=== PATIENT | female | born 1965 ===

== ENCOUNTER 2017-08-02 10:44 | Emergency (ER) | payer BC ==
[2017-08-02 11:09] VITALS: BMI 37.5
[2017-08-02 11:30] VITALS: RESP 18; TEMP 98.9
[2017-08-02] MEDS ORDERED: Sodium Chloride 0.9% 1,000 ML IV STA (11:57)
[2017-08-02] MEDS ORDERED: Iohexol 240 (50 ml) ONE (12:02)
--- NOTE | 2017-08-02 12:05 | ED PDOC ---
Arrival/HPI - General Historian: Patient - History of Present Illness Time/Duration: Prior to Arrival, > week Symptom Onset: Gradual Symptom Course: Intermittent Quality: Aching, Pressure, Burning Activities at Onset: Rest - General Chief Complaint: Flu-like Symptoms - History of Present Illness Narrative History of Present Illness (Text): 08/02/17 12:02 52F w/ PMHx of NIDDM, Pyelonephritis, multiple hernia repair w/ mesh, and HTN presents to [facility] w/ generalized crampy abdominal pain and hot warm sharp low back pain. Lower back pain has been intermittent for about 1 week. Laying down makes it feel better. Denies loss of bowel or bladder function. Abdominal pain started yesterday evening. States feeling bloated. This AM had an episode of non -bloody, non-bilious vomiting, continued nausea. States bowel movement this AM was normal. BM have been every 2-3 days. Passed flatus yesterday evening. Admits to current subjective fevers and chills PMH: stated above PSH: abdominoplasty, Ventral hernia repair w/ mesh x2, cholecystectomy ALL: NKDA (Jeff Coffman) Past Medical History - Provider Review Nursing Documentation Reviewed: Yes - Travel History Have you recently traveled outside [place] w/in the past 3 mons?: No - Infectious Disease Hx of Infectious Diseases: None - Cardiac Hx Hypertension: Yes - Pulmonary Hx Asthma: Yes - Endocrine/Metabolic Hx Diabetes Mellitus Type 2: Yes Hx Hypothyroidism: Yes - Hematological/Oncological Hx Blood Transfusions: No Hx Blood Transfusion Reaction: No - Musculoskeletal/Rheumatological Hx Falls: No - Psychiatric Hx Depression: No Hx Emotional Abuse: No Hx Physical Abuse: No Hx Substance Use: No Other/Comment: pcos - Surgical History Hx Cholecystectomy: Yes (12/2010) Other/Comment: 2 umbilical hernia sx, intestinal obsruction sx left abd, fibroids removed 2006 - Anesthesia Hx Anesthesia: Yes Hx Anesthesia Reactions: No Hx Malignant Hyperthermia: No - Suicidal Assessment Feels Threatened In Home Enviroment: No Family/Social History - Physician Review Nursing Documentation Reviewed: Yes Family/Social History: Other (non-contributory) Smoking Status: Never Smoked Hx Alcohol Use: No Hx Substance Use: No Hx Substance Use Treatment: No Allergies/Home Meds Allergies/Adverse Reactions: Allergies No Known Allergies Allergy (Verified 03/29/16 14:55) Home Medications: Home Meds Medication Instructions Recorded Confirmed Levothyroxine Sodium [Levoxyl] 175 mg PO DAILY 12/26/11 08/02/17 Metformin HCl [Fortamet] 1,000 mg PO BID 12/26/11 08/02/17 Atenolol [Tenormin] 12.5 mg PO DAILY 03/29/16 08/02/17 Losartan/Hydrochlorothiazide 1 tab PO DAILY 03/29/16 08/02/17 [Losartan Potassium-Hydrochlorothiazide 12.5 M] Review of Systems - Physician Review All systems were reviewed & negative as marked: Yes - Review of Systems Constitutional: Fevers. absent: Fatigue, Weight Change Eyes: absent: Vision Changes, Photophobia ENT: absent: Hearing Changes, Tinnitus, TMJ Pain, Sore Throat, Rhinorrhea, Epistaxis Respiratory: absent: SOB, Cough Cardiovascular: absent: Chest Pain, Palpitations, Edema Gastrointestinal: Nausea, Vomiting. absent: Abdominal Pain, Stool Changes, Constipation, Diarrhea Genitourinary Female: absent: Dysuria, Hematuria, Urine Output Changes Musculoskeletal: absent: Arthralgias, Back Pain, Neck Pain, Joint Swelling Skin: absent: Rash, Pruritis, Skin Lesions, Laceration Neurological: absent: Headache, Dizziness, Focal Weakness Endocrine: absent: Diaphoresis, Polyuria Physical Exam Vital Signs Reviewed: Yes Temperature: Afebrile Blood Pressure: Hypertensive Pulse: Tachycardic Respiratory Rate: Normal Appearance: Positive for: Well-Appearing, Non-Toxic, Comfortable Pain Distress: None Mental Status: Positive for: Alert and Oriented X 3 - Systems Exam Head: Present: Atraumatic, Normocephalic Pupils: Present: PERRL Extroacular Muscles: Present: EOMI Mouth: Present: Moist Mucous Membranes Neck: Present: Normal Range of Motion Respiratory/Chest: Present: Clear to Auscultation, Good Air Exchange. No: Respiratory Distress, Accessory Muscle Use Cardiovascular: Present: Regular Rate and Rhythm, Normal S1, S2. No: Murmurs Abdomen: Present: Distention, Normal Bowel Sounds, Other (soft; midline incision , no palpable hernia when supine). No: Tenderness, Peritoneal Signs Back: Present: Paraspinal Tenderness. No: CVA Tenderness, Midline Tenderness, Pain with Leg Raise Upper Extremity: Present: Normal Inspection, NORMAL PULSES. No: Cyanosis, Edema Lower Extremity: Present: Normal Inspection. No: CALF TENDERNESS Neurological: Present: GCS=15, Speech Normal Skin: Present: Warm, Normal Color. No: Rashes Psychiatric: Present: Alert, Oriented x 3 Vital Signs Temp Pulse Resp BP Pulse Ox 08/02/17 10:45 98.9 F 118 H 18 146/92 H 100 Medical Decision Making - Lab Interpretations I have reviewed the lab results: Yes Interpretation: No clinic. lab abnormalty ED Course and Treatment: Seen and examined with resident. 52 y/o F p/w abdominal pain and R flank pain. On exam, no CVA tenderness, abd soft. (Imm,Saman T) - Zofran, Pepcid, IVF - CT scan w/ IV contrast - CBC/CMP/Lactate Labs reviewed- mildly elevated WBC 12.4 w/ left shift Rapid flu negative Lactate- WNL UA- trace leukocytes CT- LOWER THORAX: Scattered uneven attenuation probable ventilation profusion/atelectatic changes - similar. LIVER: Unremarkable. No gross lesion or ductal dilatation. GALLBLADDER AND BILE DUCTS: Unremarkable. PANCREAS: Unremarkable. No gross lesion or ductal dilatation. SPLEEN: Unremarkable. ADRENALS: Unremarkable. No mass. KIDNEYS AND URETERS: Unremarkable. No hydronephrosis. No solid mass. VASCULATURE: Pelvic phleboliths. No aortic aneurysm. BOWEL: Small-bowel loops adherent to the anterior abdominal wall/ ventral hernia mesh can be seen with adhesions. -no associated obstruction. No gross mural thickening. Diverticulosis without gross diverticulitis APPENDIX: Normal appendix. PERITONEUM: . No free fluid. No free air. Anterior abdominal ventral hernia mesh -renoted the ventral protruding of it is similar in appearance LYMPH NODES: Unremarkable. No enlarged lymph nodes. BLADDER: Unremarkable. REPRODUCTIVE: Lobulated uterus consistent with likely uterine [id number] BONES: No acute fracture. OTHER FINDINGS: surgical mesh covering a large ventral hernia unchanged IMPRESSION: Large ventral hernia with large covering mesh similar-appearing . No interval obstruction. (Jeff Coffman) - Lab Interpretations Narrative Lab Interpretation (Text): 08/02/17 13:27 WBC slightly elevated at 12.3 w/ left shift UA- trace leukocytes; No signs of acute UTI Chem and Lactate- WNL (Jeff Coffman) Lab Results: 08/02/17 12:50 08/02/17 12:50 Lab Results 08/02/17 12:50: Influenza Typ A,B (EIA) Negative for flu a/b 08/02/17 12:50: Lactic Acid 1.6 08/02/17 12:50: Sodium 139, Potassium 3.8, Chloride 97 L, Carbon Dioxide 29, Anion Gap 16, BUN 18, Creatinine 0.6 L, Est GFR ( Amer) > 60, Est GFR ( Non-Af Amer) > 60, Random Glucose 135 H, Calcium 10.0, Total Bilirubin 0.3, AST 38 H, ALT 48, Alkaline Phosphatase 71, Total Protein 7.7, Albumin 4.3, Globulin 3.4, Albumin/Globulin Ratio 1.2, Lipase 113 08/02/17 12:50: Urine Color Yellow, Urine Appearance Clear, Urine pH 8.0, Ur Specific [place] 1.020, Urine Protein Negative, Urine Glucose (UA) Negative, Urine Ketones Negative, Urine Blood Negative, Urine Nitrate Negative, Urine Bilirubin Negative, Urine Urobilinogen 0.2, Ur Leukocyte Esterase Trace H, Urine RBC Negative, Urine WBC 2 - 5, Ur Epithelial Cells 6 - 8, Urine Bacteria Few 08/02/17 12:50: WBC 12.3 H, RBC 4.50, Hgb 13.6, Hct 40.3, MCV 89.6, MCH 30.2, MCHC 33.7, RDW 13.4, Plt Count 353, MPV 9.9, Gran % 87.9 H, Lymph % (Auto) 6.9 L , [place] % (Auto) 3.9, Eos % (Auto) 1.1 L, Baso % (Auto) 0.2, Gran # 10.82 H, Lymph # (Auto) 0.9 L, [place] # (Auto) 0.5, Eos # (Auto) 0.1, Baso # (Auto) 0.03 - RAD Interpretation Radiology Orders: 08/02/17 13:10 ABD & PELVIS IV CONTRAST ONLY [CT] Stat - Medication Orders Current Medication Orders: Discontinued Medications Famotidine (Pepcid) 20 mg IVP STAT STA Stop: 08/02/17 11:58 Last Admin: 08/02/17 12:45 Dose: 20 mg IVP Administration Document 08/02/17 12:45 EQ (Rec: 08/02/17 12:51 EQ [id number]) Charges for Administration # of IVP Administrations 1 Sodium Chloride (Sodium Chloride 0.9%) 1,000 mls @ 999 mls/hr IV .Q1H1M STA Stop: 08/02/17 12:57 Last Admin: 08/02/17 12:51 Dose: 999 mls/hr eMAR Start Stop Document 08/02/17 12:51 EQ (Rec: 08/02/17 12:52 EQ [id number]) Intravenous Solution Start Date 08/02/17 Start Time 12:52 Ondansetron HCl (Zofran Inj) 4 mg IVP STAT STA Stop: 08/02/17 11:58 Last Admin: 08/02/17 12:52 Dose: 4 mg IVP Administration Document 08/02/17 12:52 EQ (Rec: 08/02/17 12:52 EQ [id number]) Charges for Administration # of IVP Administrations 1 - PA / DIRECTOR TELEVISION NEWS / Resident Statement / has reviewed & agrees with the documentation as recorded. / has examined the patient and agrees with the treatment plan. Disposition/Present on Arrival - Present on Arrival Any Indicators Present on Arrival: No History of DVT/PE: No History of Uncontrolled Diabetes: No Urinary Catheter: No History of Decub. Ulcer: No History Surgical Site Infection Following: None - Disposition Have Diagnosis and Disposition been Completed?: Yes Disposition Time: 15:40 Patient Plan: Discharge - Disposition Diagnosis: Abdominal pain, Constipation Disposition: HOME/ ROUTINE Condition: GOOD Discharge Instructions (ExitCare): Constipation, Adult (DC) Additional Instructions: Thank you for letting us take care of you today. You were treated for Lower back and abdominal pain. The emergency medical care you received today was directed at your acute symptoms. If you were prescribed any medication, please fill it and take as directed. It may take several days for your symptoms to resolve. Return to the Emergency Department if your symptoms worsen, do not improve, or if you have any other problems. Please contact your doctor or call one of the physicians/clinics you have been referred to that are listed on the Patient Visit Information form that is included in your discharge packet. Bring any paperwork you were given at discharge with you along with any medications you are taking to your follow up visit. Our treatment cannot replace ongoing medical care by a primary care provider (PCP) outside of the emergency department. CT scan showed:. KIDNEYS AND URETERS: Unremarkable. No hydronephrosis. No solid mass. BONES: No acute fracture. OTHER FINDINGS: surgical mesh covering a large ventral hernia unchanged IMPRESSION: Large ventral hernia with large covering mesh similar-appearing . No interval obstruction. All Lab values were within normal limits Tested Flu Negative today. Thank you for allowing the [facility] team to be part of your care today. Prescriptions: Ondansetron [Zofran] 4 mg PO Q8H PRN #20 tab PRN Reason: Nausea/Vomiting Polyethylene Glycol 3350 [Miralax] 17 ml PO TID 14 Days ml Referrals: [facility], [Non-Staff] - Follow up with primary Forms: [employer] ([place]i)
[2017-08-02 13:02] LABS: BASO # 0.03 K/mm3 (0.0-2.0); BASO % 0.2 % (0.0-3.0); EOS # 0.1 (0.0-0.7); EOS % 1.1 % (1.5-5.0); GRAN # 10.82 (1.4-6.5); GRAN % 87.9 % (50.0-68.0); HEMOGLOBIN 13.6 g/dL (12.0-16.0); LYMPH # 0.9 (1.2-3.4); LYMPH % 6.9 % (22.0-35.0); MEAN CELL VOLUME 89.6 fl (80.0-105.0); MEAN CORPUSCULAR HEMOGLOBIN 30.2 pg (25.0-35.0); MEAN CORPUSCULAR HGB CONC 33.7 g/dl (31.0-37.0); MEAN PLATELET VOLUME 9.9 fl (7.0-11.0); MONO # 0.5 (0.1-0.6); MONO % 3.9 % (1.0-6.0); RBC 4.5 10^6/uL (3.5-6.1); RED CELL DISTRIBUTION WIDTH 13.4 % (11.5-14.5); WHITE BLOOD COUNT 12.3 10^3/ul (4.5-11.0)
[2017-08-02 13:06] LABS: ALB/GLOB RATIO 1.2 (1.1-1.8); ALBUMIN 4.3 g/dL (3.0-4.8); ALT/SGPT 48 U/L (7-56); AST/SGOT 38 U/L (14-36); BLOOD UREA NITROGEN 18 mg/dL (7-21); GFR AFRICAN-AMERICAN > 60; GFR NON-AFRICAN AMERICAN > 60; LIPASE 113 U/L (23-300)
[2017-08-02 13:10] LABS: URINE BILIRUBIN NEGATIVE (NEGATIVE); URINE BLOOD NEGATIVE (NEGATIVE); URINE GLUCOSE (UA) NEGATIVE (NEGATIVE); URINE LEUKOCYTE ESTERASE TRACE Leu/uL (NEGATIVE); URINE PROTEIN NEGATIVE mg/dL (<30 mg/dL); URINE UROBILINOGEN 0.2 E.U./dL (<1 E.U./dL)
[2017-08-02 13:17] LABS: URINE APPEARANCE CLEAR (CLEAR); URINE COLOR YELLOW (YELLOW)
[2017-08-02 13:28] LABS: URINE BACTERIA FEW (NEG); URINE RBC NEGATIVE /hpf (0-2)
[2017-08-02] MEDS ORDERED: Iohexol 350 MG/100 ML VIAL ONE (13:53)
--- NOTE | 2017-08-02 14:49 | CT ---
PROCEDURE: CT Abdomen and Pelvis with contrast HISTORY: ABD and LBP Back pain COMPARISON: None. TECHNIQUE: Contrast dose: Radiation dose: Total exam DLP = mGy-cm. This CT exam was performed using one or more of the following dose reduction techniques: Automated exposure control, adjustment of the mA and/or kV according to patient size, and/or use of iterative reconstruction technique. FINDINGS: LOWER THORAX: Scattered uneven attenuation probable ventilation profusion/atelectatic changes - similar. LIVER: Unremarkable. No gross lesion or ductal dilatation. GALLBLADDER AND BILE DUCTS: Unremarkable. PANCREAS: Unremarkable. No gross lesion or ductal dilatation. SPLEEN: Unremarkable. ADRENALS: Unremarkable. No mass. KIDNEYS AND URETERS: Unremarkable. No hydronephrosis. No solid mass. VASCULATURE: Pelvic phleboliths. No aortic aneurysm. BOWEL: Small-bowel loops adherent to the anterior abdominal wall/ ventral hernia mesh can be seen with adhesions. -no associated obstruction. No gross mural thickening. Diverticulosis without gross diverticulitis APPENDIX: Normal appendix. PERITONEUM: . No free fluid. No free air. Anterior abdominal ventral hernia mesh -renoted the ventral protruding of it is similar in appearance LYMPH NODES: Unremarkable. No enlarged lymph nodes. BLADDER: Unremarkable. REPRODUCTIVE: Lobulated uterus consistent with likely uterine [id number] BONES: No acute fracture. OTHER FINDINGS: surgical mesh covering a large ventral hernia unchanged IMPRESSION: Large ventral hernia with large covering mesh similar-appearing . No interval obstruction. Other findings as above
[2017-08-02 16:57] VITALS: BP 122/65; PULSE 106; O2SAT 98
== END 2017-08-02 17:12 | disposition home or self-care (01) ==
LOC: ED 10:44
DX: K59.00 Constipation, unspecified (principal); M10.9 Gout, unspecified; E11.9 Type 2 diabetes mellitus without complications; I10 Essential (primary) hypertension; E03.9 Hypothyroidism, unspecified
CPT/HCPCS: 74177; 80053; 81001; 83605; 83690; 85025; 87086; 87804; 96374; 96375; 99284; J1885; J2405; J7040; Q9966; Q9967